=== PATIENT | female | born 1980 | race Caucasian/White ===

== ENCOUNTER 2016-08-23 22:39 | Emergency (ER) | payer MEDICAID ==
[~2016-08-23] VITALS: Ht 157.5 cm; Wt 69.4 kg
[~2016-08-23 22:39] MED LIST: BACTRIM DS 800/1 TAB PO; KEFLEX250 MG PO; SYNTHROID0.088 MG PO; SYNTHROID0.1 MG PO; VIBRAMYCIN100 MG PO
[2016-08-23 23:01] VITALS: BP 110/71
--- NOTE | 2016-08-23 23:28 | NUR ---
Patient to OF.
--- NOTE | 2016-08-23 23:38 | NUR ---
36Y F BIB SELF C/O BACK PAIN, FOR A WEEK,ABD ABD PAIN , CHILLS ALL DAY . PT DENIES N/V/D; SKIN IS PINK/WARM/DRY; AAOX4 WITH EVEN AND STEADY GAIT; LUNGS CLEAR BL; HR EVEN AND REGULAR; PT DENIES ANY FEVER, CP, SOB, OR COUGH AT THIS TIME; VSS; PATIENT POSITIONED FOR COMFORT; HOB ELEVATED; BEDRAILS UP X2; BED DOWN. ER MD MADE AWARE OF PT STATUS.
--- NOTE | 2016-08-23 23:38 | NUR ---
PA student evaluating patient.
--- NOTE | 2016-08-23 23:59 | NUR ---
Dr. Gonzales evaluating patient.
[2016-08-24 00:35] VITALS: BP 112/76
--- NOTE | 2016-08-24 00:35 | NUR ---
Patient discharged with v/s stable. Written and verbal after care instructions given and explained. Patient alert, oriented and verbalized understanding of instructions. Ambulatory with steady gait. All questions addressed prior to discharge. ID band removed. Patient advised to follow up with PMD. Rx of CIPRO 250MG, NAPROSYN 500MG, AND TYLENOL #3 given. Patient educated on indication of medication including possible reaction and side effects. Opportunity to ask questions provided and answered.
== END 2016-08-24 00:35 | disposition home or self-care (01) ==
LOC: MED 22:39
DX: N39.0 Urinary tract infection, site not specified (principal); E03.9 Hypothyroidism, unspecified; Z90.89 Acquired absence of other organs

== ENCOUNTER 2017-01-18 18:14 | Emergency (ER) | payer MEDICAID, OTHER ==
[~2017-01-18] VITALS: Ht 160 cm; Wt 66.2 kg
[2017-01-18 18:36] VITALS: BP 120/74
--- NOTE | 2017-01-18 19:26 | NUR ---
TO ER BED 5
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
[2017-01-18] MEDS ORDERED: cefTRIAXone 250 MG in LIDOCAINE 1% ED 0.9 ML IM ONE (21:40)
[2017-01-18] MEDS ORDERED: KETOROLAC 60 MG/2 ML VIAL IM ONE (21:40)
[2017-01-18] MEDS ORDERED: AZITHROMYCIN 250 MG TAB PO ONE (21:40)
[2017-01-18 22:30] VITALS: BP 127/82
--- NOTE | 2017-01-18 22:30 | NUR ---
Patient discharged with v/s stable. Written and verbal after care instructions given and explained. Patient alert, oriented and verbalized understanding of instructions. Ambulatory with steady gait. All questions addressed prior to discharge. ID band removed. Patient advised to follow up with PMD. Rx of MOTRIN 800 MG given. Patient educated on indication of medication including possible reaction and side effects. Opportunity to ask questions provided and answered.
== END 2017-01-18 22:30 | disposition home or self-care (01) ==
LOC: MED 18:14
DX: N73.9 Female pelvic inflammatory disease, unspecified (principal); E03.9 Hypothyroidism, unspecified
CPT/HCPCS: 36415; 76856; 80053; 81002; 81025; 85025; 85610; 85730; 96372; 99285; J0696; J1885; J2001; Q0092

== ENCOUNTER 2017-02-20 18:19 | Emergency (ER) | payer MEDICAID ==
[~2017-02-20] VITALS: Ht 157.5 cm; Wt 70.3 kg
[~2017-02-20 18:19] MED LIST changes: -BACTRIM DS 800/1 TAB PO; +DOXY100C9 PO; -KEFLEX250 MG PO; +SULF1TAB12 PO; +SYN.1 PO; -SYNTHROID0.088 MG PO; -SYNTHROID0.1 MG PO; -VIBRAMYCIN100 MG PO
[2017-02-20 18:25] VITALS: BP 111/68
--- NOTE | 2017-02-20 19:06 | NUR ---
PT TAKEN TO XRAY FROM THE [facility]
--- NOTE | 2017-02-20 19:19 | NUR ---
PT TAKEN TO BED 8
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
[2017-02-20] MEDS ORDERED: KETOROLAC 60 MG/2 ML VIAL IM ONE (19:40)
[2017-02-20 20:17] VITALS: BP 121/76
--- NOTE | 2017-02-20 20:17 | NUR ---
Patient discharged with v/s stable. Written and verbal after care instructions given and explained. Patient alert, oriented and verbalized understanding of instructions. Ambulatory with steady gait. All questions addressed prior to discharge. ID band removed. Patient advised to follow up with PMD. Rx of FLEXERIL 10MG & IBU 800mg given. Patient educated on indication of medication including possible reaction and side effects. Opportunity to ask questions provided and answered.
== END 2017-02-20 20:17 | disposition home or self-care (01) ==
LOC: MED 18:19
DX: S16.1XXA Strain of muscle, fascia and tendon at neck level, initial encounter (principal); S80.11XA Contusion of right lower leg, initial encounter; Z79.899 Other long term (current) drug therapy; V43.52XA Car driver injured in collision with other type car in traffic accident, initial encounter; Y93.89 Activity, other specified; Y92.411 Interstate highway as the place of occurrence of the external cause; Y99.8 Other external cause status
CPT/HCPCS: 71010; 72100; 96372; 99284; J1885

== ENCOUNTER 2017-07-17 19:34 | Emergency (ER) | payer MEDICAID ==
[~2017-07-17] VITALS: Ht 160 cm; Wt 68.0 kg
[2017-07-17 19:44] VITALS: BP 126/60
--- NOTE | 2017-07-17 19:49 | NUR ---
to lobby, a/w bed, amb, stable , ermd noted
--- NOTE | 2017-07-17 20:00 | NUR ---
PT TAKEN TO CHAIR B
--- NOTE | 2017-07-17 20:00 | NUR ---
Pt presents to Ed with dizziness and difficulty sleeping x2 days. Pt states no n/v or difficulty with vision. Pt states no pain at this time. Seen at chair side be Dr. Garner. VSS. Continue to monitor.
--- NOTE | 2017-07-17 20:12 | NUR ---
Dr. Garner evaluating patient.
[2017-07-17] MEDS ORDERED: METOCLOPRAMIDE 10 MG/2 ML INJ VIAL IM ONE (20:45)
[2017-07-17] MEDS ORDERED: KETOROLAC 60 MG/2 ML VIAL IM ONE (20:45)
[2017-07-17 21:05] LABS: APPEARANCE,URINE CLEAR (CLEAR); BILIRUBIN,URINE NEGATIVE (NEGATIVE); BLOOD, URINE TRACE-L (NEGATIVE); COLOR,URINE YELLOW (YELLOW); LEUKOCYTE ESTERASE ,URINE TRACE (NEGATIVE); NITRITE, URINE NEGATIVE (NEGATIVE); PH,URINE 5.5 (5.0-9.0); UGLUCOSE NEGATIVE (NEGATIVE)
[2017-07-17 21:33] LABS: RBC,URINE 0-5 (RARE) /HPF (0-5); WBC,URINE 0-5 (RARE) /HPF (0-5)
[2017-07-17 22:19] VITALS: BP 126/60
--- NOTE | 2017-07-17 22:19 | NUR ---
Patient discharged with v/s stable with pain, N/V, or dizziness. Written and verbal after care instructions given and explained. Patient alert, oriented and verbalized understanding of instructions. Ambulatory with steady gait. All questions addressed prior to discharge. ID band removed. Patient advised to follow up with PMD. Rx of Plan-B given. Patient educated on indication of medication including possible reaction and side effects. Opportunity to ask questions provided and answered.
== END 2017-07-17 22:19 | disposition home or self-care (01) ==
LOC: MED 19:34
DX: R51 Headache (principal); R42 Dizziness and giddiness; Z79.899 Other long term (current) drug therapy
CPT/HCPCS: 81001; 81025; 96372; 99284; J1885; J2765

== ENCOUNTER 2017-08-18 07:16 | Emergency (ER) | payer MEDICAID ==
[~2017-08-18] VITALS: Ht 160 cm; Wt 68.0 kg
[2017-08-18 07:29] VITALS: BP 126/80
--- NOTE | 2017-08-18 07:30 | NUR ---
PT. CAME INTO ED W/ C/O PAIN IN STOMACH AND NOT BEING ABLE TO PEE SINCE MIDNIGHT. PT. STATES " I WAS OUT LAST NIGHT WITH MY SISTER IN LAW, AND I HAVE HAD THE URGENCY TO PEE BUT HAVE NOT BEEN ABLE TO PEE SINCE MIDNIGHT LAST NIGHT". 10/10 PAIN IN LOWER ABD RADIATING TO UPPER ABD, DESCRIBED BLOATING SHARP PAIN. PT. AAOX4. DENIES SOB, DENIES N/V/D. PT. DENIES ANY PAIN UPON URINATION OR BURNING SENSATION BEFORE. ABD IS ROUND AND SOFT WITH TENDERNESS UPON PALPATION, ACTIVE X 4 QUADRANTS. ER MD NOTIFIED. WILL CONTINUE TO MONITOR
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
--- NOTE | 2017-08-18 09:25 | NUR ---
PT. PROVIDED WITH WATER.
--- NOTE | 2017-08-18 09:57 | NUR ---
PT. HAS VOIDED ON HER OWN, DENIES ANY PAIN UPON VOIDING, STEADY GAIT. DR. BELLA NOTIFIED.
[2017-08-18 10:01] VITALS: BP 125/69
--- NOTE | 2017-08-18 10:01 | NUR ---
Patient discharged with v/s stable. Written and verbal after care instructions given and explained. Patient verbalized understanding. Ambulatory with steady gait. All questions addressed prior to discharge. Advised to follow up with PMD.
== END 2017-08-18 10:01 | disposition home or self-care (01) ==
LOC: MED 07:16
DX: R33.9 Retention of urine, unspecified (principal); E03.9 Hypothyroidism, unspecified
CPT/HCPCS: 51702; 81002; 81025; 99284

== ENCOUNTER 2019-11-24 10:26 | Emergency (ER) | payer MEDICAID ==
[~2019-11-24] VITALS: Ht 160 cm; Wt 70.8 kg
[2019-11-24 10:33] VITALS: BP 110/72
--- NOTE | 2019-11-24 11:15 | NUR ---
39/F c/o upper back pain x 1 wk. States pain 8/10 at this time. Denies trauma/injury. Appears NAD. VSS. Ambulatory steady gait. No deformity. medhx: hypothyroidism
--- NOTE | 2019-11-24 11:40 | NUR ---
DR. SINGH EVALUATING PT AT BEDSIDE
--- NOTE | 2019-11-24 11:52 | NUR ---
CLINICAL RESEARCH ADMINISTRATOR AT BEDSIDE FOR BLOOD DRAW
[2019-11-24] MEDS: KETOROLAC 30 MG/ML VIAL IM STA (11:56)
[2019-11-24 12:03] LABS: BASOPHILS # (AUTO) 0.1 K/uL (0.00-0.22); BASOPHILS % (AUTO) 0.8 % (0.0-2.0); EOSINOPHILS # (AUTO) 0.1 K/uL (0-0.4); EOSINOPHILS % (AUTO) 1.5 % (0.0-4.0); HEMATOCRIT 40.8 % (36-48); LYMPHOCYTES # (AUTO) 2.5 K/uL (2.5-16.5); LYMPHOCYTES % (AUTO) 31.3 % (20.5-51.1); MEAN CORPUSCULAR HEMOGLOBIN 30 pg (27-31); MEAN CORPUSCULAR HGB CONC 34 g/dL (33-37); MONOCYTES # (AUTO) 0.5 K/uL (0.8-1.0); MONOCYTES % (AUTO) 6.4 % (1.7-9.3); NEUTROPHILS # (AUTO) 4.8 K/uL (1.8-7.7); PLATELET COUNT (AUTO) 357 K/uL (140-450); RED BLOOD CELL COUNT(AUTO) 4.58 MIL/uL (4.20-5.40); RED CELL DISTRIBUTION WIDTH 13.2 % (11.6-13.7)
[2019-11-24 12:47] LABS: APPEARANCE,URINE CLEAR (CLEAR); COLOR,URINE YELLOW (YELLOW)
[2019-11-24 12:48] LABS: BILIRUBIN,URINE NEGATIVE (NEGATIVE); BLOOD, URINE NEGATIVE (NEGATIVE); LEUKOCYTE ESTERASE ,URINE NEGATIVE (NEGATIVE); NITRITE, URINE NEGATIVE (NEGATIVE); UGLUCOSE NEGATIVE (NEGATIVE)
[2019-11-24 13:14] LABS: POTASSIUM 3.9 mmol/L (3.5-5.1)
--- NOTE | 2019-11-24 13:14 | NUR ---
Pt states decrease in pain, 5/10 at this time.
[2019-11-24 13:15] LABS: ANION GAP 10.5 (8-16); CARBON DIOXIDE 28.4 mmol/L (21-32); CREATININE 0.8 mg/dL (0.6-1.3)
--- NOTE | 2019-11-24 13:29 | NUR ---
Patient discharged with v/s stable. Written and verbal after care instructions given and explained. Patient alert, oriented and verbalized understanding of instructions. Ambulatory with steady gait. All questions addressed prior to discharge. ID band removed. Patient advised to follow up with PMD. Rx of Ibuprofen, Keflex, Flexeril given. Patient educated on indication of medication including possible reaction and side effects. Opportunity to ask questions provided and answered.
[2019-11-24 13:31] VITALS: BP 108/74
== END 2019-11-24 13:29 | disposition home or self-care (01) ==
LOC: MED 10:26
DX: M54.5 Low back pain (principal); R10.9 Unspecified abdominal pain; R30.0 Dysuria; E03.9 Hypothyroidism, unspecified; Z79.899 Other long term (current) drug therapy
CPT/HCPCS: 36415; 80048; 81003; 81025; 85025; 96372; 99283; J1885

== ENCOUNTER 2021-08-04 19:02 | Emergency (ER) | payer MEDICAID ==
[~2021-08-04] VITALS: Ht 160 cm; Wt 72.6 kg
[~2021-08-04 19:02] MED LIST changes: +DOXY-690 PO; -DOXY100C9 PO; +SULF-954 PO; -SULF1TAB12 PO
[2021-08-04 19:26] VITALS: BP 127/78
[2021-08-04 20:13] LABS: BILIRUBIN,URINE NEGATIVE (NEGATIVE); BLOOD, URINE NEGATIVE (NEGATIVE); LEUKOCYTE ESTERASE ,URINE TRACE (NEGATIVE); NITRITE, URINE NEGATIVE (NEGATIVE); UGLUCOSE NEGATIVE (NEGATIVE)
[2021-08-04 20:13] LABS: BASOPHILS % (AUTO) 0.4 % (0.0-2.0); EOSINOPHILS # (AUTO) 0.2 K/uL (0-0.4); EOSINOPHILS % (AUTO) 1.6 % (0.0-4.0); HEMATOCRIT 38.8 % (36-48); HEMOGLOBIN 13.4 g/dL (12.0-16.0); LYMPHOCYTES # (AUTO) 2.7 K/uL (2.5-16.5); MEAN CORPUSCULAR HEMOGLOBIN 30 pg (27-31); MEAN CORPUSCULAR HGB CONC 34 g/dL (33-37); MEAN CORPUSCULAR VOLUME 87.6 fL (80-94); MONOCYTES % (AUTO) 8.9 % (1.7-9.3); NEUTROPHILS # (AUTO) 7.2 K/uL (1.8-7.7); NEUTROPHILS % (AUTO) 65.1 % (42.2-75.2); PLATELET COUNT (AUTO) 343 K/uL (140-450); RED BLOOD CELL COUNT(AUTO) 4.44 MIL/uL (4.20-5.40); RED CELL DISTRIBUTION WIDTH 13.5 % (11.6-13.7); WHITE BLOOD COUNT (AUTO) 11.1 K/uL (4.8-10.8)
[2021-08-04 20:20] LABS: APPEARANCE,URINE HAZY (CLEAR)
[2021-08-04 20:39] LABS: COLOR,URINE STRAW (YELLOW); RBC,URINE NONE SEEN /HPF (0-5); WBC,URINE 0-5 /HPF (0-5)
[2021-08-04 20:45] LABS: ALBUMIN 3.7 g/dL (3.4-5.0); ANION GAP 12.9 (8-16); CARBON DIOXIDE 27.1 mmol/L (21-32); CREATININE 0.9 mg/dL (0.6-1.3); TOTAL BILIRUBIN 0.3 mg/dL (0.0-1.0)
[2021-08-04] MEDS ORDERED: NITR100C7 PO (21:52)
[2021-08-04 21:58] VITALS: BP 127/78
== END 2021-08-04 21:58 | disposition home or self-care (01) ==
LOC: MED 19:02
DX: N39.0 Urinary tract infection, site not specified (principal); K76.0 Fatty (change of) liver, not elsewhere classified; E06.9 Thyroiditis, unspecified
CPT/HCPCS: 36415; 80053; 81001; 81002; 81025; 83690; 85025; 99284

== ENCOUNTER 2022-10-04 15:41 | Emergency (ER) | payer MEDICAID ==
[~2022-10-04] VITALS: Ht 165.1 cm; Wt 68.5 kg
[~2022-10-04 15:41] MED LIST changes: +NITR100C7 PO
[2022-10-04 17:40] VITALS: BP 120/76
--- NOTE | 2022-10-04 17:50 | NUR ---
PT AMB TO BED 3
--- NOTE | 2022-10-04 18:05 | NUR ---
Female [employer] Furnace Operator Helper accompanied female patient for Pelvic Exam.
[2022-10-04 18:11] LABS: BILIRUBIN,URINE NEGATIVE (NEGATIVE); BLOOD, URINE TRACE-I (NEGATIVE); COLOR,URINE YELLOW (YELLOW); LEUKOCYTE ESTERASE ,URINE 1+ (NEGATIVE); NITRITE, URINE NEGATIVE (NEGATIVE); PH,URINE 6.5 (5.0-9.0); UGLUCOSE NEGATIVE (NEGATIVE)
--- NOTE | 2022-10-04 18:11 | NUR ---
PT AMB BACK TO LOBBY
[2022-10-04 18:16] LABS: APPEARANCE,URINE HAZY (CLEAR)
[2022-10-04 18:24] LABS: RBC,URINE 0-5 /HPF (0-5)
[2022-10-04] MEDS ORDERED: SULF-59 PO (18:51)
--- NOTE | 2022-10-04 19:00 | NUR ---
Patient discharged with v/s stable. Written and verbal after care instructions given and explained. Patient alert, oriented and verbalized understanding of instructions. Ambulatory with to home. All questions addressed prior to discharge. ID band removed. Patient advised to follow up with PMD. Rx of BACTRIM given. Patient educated on indication of medication including possible reaction and side effects. Opportunity to ask questions provided and answered.
== END 2022-10-04 19:00 | disposition home or self-care (01) ==
LOC: MED 15:41
DX: N39.0 Urinary tract infection, site not specified (principal); E03.9 Hypothyroidism, unspecified; Z79.899 Other long term (current) drug therapy; Z90.49 Acquired absence of other specified parts of digestive tract; Z98.890 Other specified postprocedural states
CPT/HCPCS: 81001; 81025; 87070; 87086; 87205; 87210; 87491; 99284

== ENCOUNTER 2023-01-17 19:12 | Emergency (ER) | payer MEDICAID ==
[~2023-01-17] VITALS: Ht 160 cm; Wt 64.9 kg
[~2023-01-17 19:12] MED LIST changes: +SULF-59 PO
[2023-01-17 19:39] VITALS: BP 128/76; PULSE 63; RESP 18; TEMP 97.6; O2SAT 98
[2023-01-17] MEDS ORDERED: DICL100G32 TP (21:02)
[2023-01-17] MEDS ORDERED: PYR100 PO (21:02)
[2023-01-17] MEDS ORDERED: AMOX1TAB8 PO (21:02)
[2023-01-17] MEDS ORDERED: IBUP-1842 PO (21:02)
[2023-01-17 21:17] LABS: APPEARANCE,URINE CLEAR (CLEAR); BILIRUBIN,URINE NEGATIVE (NEGATIVE); BLOOD, URINE NEGATIVE (NEGATIVE); COLOR,URINE YELLOW (YELLOW); LEUKOCYTE ESTERASE ,URINE TRACE (NEGATIVE); NITRITE, URINE NEGATIVE (NEGATIVE); PROTEIN,URINE NEGATIVE (NEGATIVE); UGLUCOSE NEGATIVE (NEGATIVE); UROBILINOGEN,URINE 0.2 EU/dL (0.2 - 1)
[2023-01-17 21:21] VITALS: BP 128/76; PULSE 63; RESP 18; TEMP 97.6; O2SAT 98
[2023-01-17 21:34] LABS: BACTERIA,URINE None Seen /HPF (None Seen); MUCUS,URINE 1+ /LPF (None Seen); RBC,URINE 0-5 /HPF (0-5); SQUAMOUS EPITHELIAL CELL,UR 4-10 (MOD) /LPF (0-3 (FEW)); TRICHOMONAS,URINE None Seen /HPF (None Seen); WBC,URINE 0-5 /HPF (0-5); YEAST,URINE None Seen /HPF (None Seen)
== END 2023-01-17 21:21 | disposition home or self-care (01) ==
LOC: MED 19:12
DX: N12 Tubulo-interstitial nephritis, not specified as acute or chronic (principal); E03.9 Hypothyroidism, unspecified; Z79.899 Other long term (current) drug therapy; Z79.2 Long term (current) use of antibiotics; Z79.1 Long term (current) use of non-steroidal anti-inflammatories (NSAID)
CPT/HCPCS: 81001; 81025; 99283

== ENCOUNTER 2023-08-15 19:15 | Emergency (ER) | payer MEDICAID, OTHER ==
[~2023-08-15] VITALS: Ht 160 cm; Wt 71.2 kg
[~2023-08-15 19:15] MED LIST changes: +AMOX1TAB8 PO; +DICL100G32 TP; +IBUP-1842 PO; +PYR100 PO
[2023-08-15 19:45] VITALS: BP 135/77; PULSE 79; RESP 18; TEMP 97.5; O2SAT 99
[2023-08-15 20:48] LABS: BILIRUBIN,URINE NEGATIVE (NEGATIVE); BLOOD, URINE TRACE-I (NEGATIVE); COLOR,URINE YELLOW (YELLOW); LEUKOCYTE ESTERASE ,URINE 3+ (NEGATIVE); NITRITE, URINE NEGATIVE (NEGATIVE); PH,URINE 6.5 (5.0-9.0); PROTEIN,URINE NEGATIVE (NEGATIVE); UGLUCOSE NEGATIVE (NEGATIVE); UROBILINOGEN,URINE 0.2 EU/dL (0.2 - 1)
[2023-08-15 20:57] LABS: APPEARANCE,URINE SLIGHTLY CLOUDY (CLEAR)
[2023-08-15 20:59] LABS: BACTERIA,URINE 2+ /HPF (None Seen); MUCUS,URINE None Seen /LPF (None Seen); RBC,URINE 0-5 /HPF (0-5); SQUAMOUS EPITHELIAL CELL,UR 4-10 (MOD) /LPF (0-3 (FEW))
[2023-08-15] MEDS ORDERED: FLUC150T64 PO (21:07)
[2023-08-15] MEDS ORDERED: MICO45CR20 VG (21:07)
[2023-08-15] MEDS ORDERED: CEFP100T18 PO (21:07)
== END 2023-08-15 21:14 | disposition home or self-care (01) ==
LOC: MED 19:15
DX: N39.0 Urinary tract infection, site not specified (principal); B37.31 Acute candidiasis of vulva and vagina; E03.9 Hypothyroidism, unspecified; Z79.899 Other long term (current) drug therapy
CPT/HCPCS: 81001; 81025; 87086; 87491; 99283